=== PATIENT | female | born 2000 | race Caucasian/White ===

== ENCOUNTER 2023-11-20 04:30 | Inpatient (IN) ==
[2023-11-20] MEDS ORDERED: LIDOCAINE 1% LOCAL 20 ML VIAL INFIL PRN (06:11)
[2023-11-20] MEDS ORDERED: OXYTOCIN 30 UNITS/NSS 30 UNITS/500 ML BAG IV PRN (06:11)
[2023-11-20] MEDS: LACTATED RINGER'S 1,000 ML IV PRN (06:50)
--- NOTE | 2023-11-20 06:55 | History & Physical Report ---
Date of Service November 20, 2023 Assessment & Plan (1) Tobacco smoking affecting : Plan: Mika is a 23-year-old G1, P0 currently at 39 weeks 5 days gestational age presents in labor. Progressing spontaneously. Category 1 tracing. GBS negative. Vitals within normal limits (2) Normal labor: (3) Encounter for supervision of normal : Admission and Anticipated Discharge Date Admission Date: November 20, 2023 History of Present Illness Primary Care Provider: Jaleel Arguello, DO This a 23-year-old G1, P0 currently at 39 weeks 5 days gestational age presents for evaluation of labor. Reporting regular painful contractions that have been increasing in intensity and frequency over time. Denying leakage of fluid or vaginal bleeding. Normal movement complicated by tobacco use during . OB Labs: Blood Type O Positive 04/29/23 Antibody Screen NEGATIVE 04/29/23 Hemoglobin 11.6 g/dl (12.0-16.0) L 08/30/23 Hematocrit 32.1 % (37.0-47.0) L 08/30/23 Mean Corpuscular Volume 92.9 fL (80.0-100.0) 04/29/23 Platelet Count 241 K/uL (130-400) 04/29/23 Rubella IgG Antibody Immune (Immune) 04/29/23 Rapid Plasma Reagin Nonreactive (Nonreactive) 04/29/23 Hepatitis B Surface Antigen. NON-REACTIVE (NON-REACTIVE) 04/29/23 Hepatitis C Antibody (EIA) NON-REACTIVE (NON-REACTIVE) 04/29/23 HIV (1&2) Ag and Ab Confirmation NON-REACTIVE (NON-REACTIVE) 04/29/23 Glucose 1 Hour 50 gm Load 87 mg/dl (70-130) 08/30/23 OB Optional Labs: Chlamydia trachomatis RNA Not Detected (NotDetected) 04/29/23 Neisseria gonorrhoeae RNA Not Detected (NotDetected) 04/29/23 Labs Reviewed: cfDNA, declines smp horizon testing, declines smp Allergies Allergy/AdvReac Type Severity Reaction Status Date / Time No Known Allergies Allergy Verified 11/15/23 13:44 Home Medications Medication Instructions Recorded Confirmed Type 21-iron fu-folic acid PO 1XD 04/19/23 11/15/23 History [ Complete] Patient History Medical History (Updated 11/20/23 @ 06:54 by Cornel Garcia MD) UTI (urinary tract infection) Surgical History No history of previous surgery Family History Denies family history of Ovarian cancer Breast cancer Colorectal cancer Social History Smoking Status: Current every day smoker Tobacco Type: Cigarettes Cigarettes Per Day: 5; Do You Dip or Chew Tobacco: No; Hx Alcohol Use: No Hx Substance Use: No Preferred Language: Romanian Fence Setter Required: No Beliefs That Will Affect Care: None marital status: Single marital status details: geovanny España Holbrook (22) Current Living Situation: Parent Current Living Situation Comment: lives with parents, dog, cat-mom changing litter current occupational status: employed current occupation: [employer] Other Information That Helps Us Care for You: No Feels Safe at Home: Yes Safety Concerns: Feels Safe At This Time Assistive Devices: Glasses Physical Exam Genitourinary: Manual OB Exam: + cervical dilation OB Exam Monitor Tracing: + external FHT monitor used, + external uterine monitor used, + category I and + normal FHT variability Progressed from 1.5 cm dilated to 3 cm dilated over 1 hour. Results & Data Vital Signs (Past 12 Hours) Vital Signs Temp Pulse Resp BP 11/20/23 04:59 71 118/77 11/20/23 04:50 36.7 C 20 Coding Level of Care Code None Diagnoses Tobacco smoking affecting in third trimester O99.333 Trimester: third trimester Normal labor O80; Z37.9 Encounter for supervision of normal first in third trimester Z34.03 Normal : normal first Trimester: third trimester (1) Tobacco smoking affecting Trimester: third trimester Qualified Code(s): O99.333 - Smoking (tobacco) complicating , third trimester (3) Encounter for supervision of normal Normal : normal first Trimester: third trimester Qualified Code(s): Z34.03 - Encounter for supervision of normal first , third trimester
[2023-11-20 06:58] LABS: Hematocrit (blood only) 28.8 % (37.0-47.0); Hemoglobin 10.2 g/dl (12.0-16.0); Mean Corpuscular Hemoglobin 30.7 pg (25.0-34.0); Mean Corpuscular Hgb Conc 35.4 g/dL (32.0-36.0); Mean Corpuscular Volume 86.7 fL (80.0-100.0); Mean Platelet Volume 10.1 fL (9.4-12.4); Platelet Count 292 K/uL (130-400); RDW Coefficient of Variation 12.9 % (11.5-14.5); RDW Standard Deviation 40.3 fL (36.4-46.3); Red Blood Count 3.32 M/uL (4.20-5.40); White Blood Count 10.63 K/ul (4.8-10.8)
[2023-11-20] MEDS ORDERED: ROPIVACAINE 0.5% PF 5 MG/ML 20 ML VIAL EPI PRN (07:09)
[2023-11-20] MEDS ORDERED: BUPIVACAINE 0.25% PF 30 ML VIAL EPI PRN (07:09)
[2023-11-20] MEDS ORDERED: NALOXONE HCL 0.4 MG/1 ML VIAL/CARP IV PRN ×2 (07:09→21:45)
[2023-11-20] MEDS ORDERED: diphenhydrAMINE 50 MG/ML VIAL IV PRN ×2 (07:09→21:45)
[2023-11-20] MEDS ORDERED: ONDANSETRON INJ 2 MG/ML 2 ML VIAL IV PRN ×2 (07:09→21:45)
[2023-11-20] MEDS ORDERED: NALBUPHINE HCL 5 MG in SYRINGE 0 ML IV PRN ×2 (07:09→21:45)
[2023-11-20] MEDS ORDERED: LIDOCAINE 2% MPF LOCAL 5 ML VIAL EPI PRN (07:09)
[2023-11-20] MEDS ORDERED: NALOXONE HCL 1 MG in SODIUM CHLORIDE 0.9% 1,000 ML IV PRN ×2 (07:09→21:45)
[2023-11-20] MEDS ORDERED: fentaNYL citrate PF 100 MCG/2 ML VIAL EPI PRN (07:09)
[2023-11-20] MEDS ORDERED: SODIUM CHLORIDE 0.9% PF INJ 10 ML VIAL EPI PRN (07:09)
[2023-11-20] MEDS ORDERED: ePHEDrine sulfate 50 MG/ML AMP IV PRN ×2 (07:09→21:45)
--- NOTE | 2023-11-20 07:11 | Anesthesiology Consultation ---
Date of Service November 20, 2023 Assessment & Plan (1) Encounter for pre-operative examination: Chart Review Chart Review: Patient NOT seen in Pre Admission Testing and Acceptable Risk for Labor Epidural Consults Requested none History Height/Weight Height: 5 ft 2 in Weight: 93.803 kg Allergies Allergy/AdvReac Type Severity Reaction Status Date / Time No Known Allergies Allergy Verified 11/15/23 13:44 Medications Home Medications Medication Instructions Recorded Confirmed Last Taken 21-iron fu-folic acid PO 1XD 04/19/23 11/15/23 11/19/23 [ Complete] Active Medications Generic Name Dose Route Start Last Admin Trade Name Freq PRN Reason Stop Dose Admin Lactated Ringer's 1,000 mls @ 125 mls/hr 11/20/23 06:11 11/20/23 06:50 Lr IV 11/22/23 06:10 999 mls/hr .Q8H PRN Administration L&D Protocol Protocol Past Medical History Medical History (Updated 11/20/23 @ 07:11 by Jay Duncan MD) Encounter for pre-operative examination UTI (urinary tract infection) Exercise / Class Metabolic Activity II 4-5 Yardwork/Stairs/Walk up hill Past Family History Family History Denies family history of Ovarian cancer Breast cancer Colorectal cancer Past Surgical History Surgical History No history of previous surgery Social History Smoking Status: Current every day smoker Smoking cigarettes per day: 5 Do You Dip or Chew Tobacco: No Hx Alcohol Use: No Hx Substance Use: No substance use type: does not use Physical Exam Vital Signs Last Vital Signs Temp 36.7 C 11/20/23 04:50 Pulse 78 11/20/23 07:27 Resp 20 11/20/23 04:50 BP 118/77 11/20/23 04:59 Pulse Ox 98 11/20/23 07:27 Testing Laboratory Results 11/20/23 06:34
[2023-11-20] MEDS: BUPIVACAINE 0.25% PF 30 ML VIAL ONE (07:28)
[2023-11-20] MEDS: fentaNYL citrate PF 100 MCG/2 ML VIAL ONE (07:28)
[2023-11-20] MEDS: LIDOCAINE 2%/EPINEPHRINE 1:200,000 20 ML PF ONE (07:33)
[2023-11-20] MEDS: fentANYL 2 MCG/ML BUPIVacaine 0.125%-NSS 100ML BAG EPI PRN (07:34)
[2023-11-20] MEDS: fentANYL 2 MCG/ML BUPIVacaine 0.125%-NSS 100ML BAG ONE (08:26)
[2023-11-20] MEDS: BUPIVACAINE 0.25% PF 30 ML VIAL EPI STA (08:26)
[2023-11-20] MEDS: fentaNYL citrate PF 100 MCG/2 ML VIAL EPI STA (08:27)
[2023-11-20] MEDS: SODIUM CHLORIDE 0.9% PF INJ 10 ML VIAL EPI STA (08:36)
[2023-11-20] MEDS: SODIUM CHLORIDE 0.9% PF INJ 10 ML VIAL ONE (08:36)
[2023-11-20] MEDS: LIDOCAINE 2%/EPINEPHRINE 1:200,000 20 ML PF EPI STA (09:20)
[2023-11-20] MEDS: ePHEDrine sulfate 50 MG/ML AMP ONE (09:35)
--- NOTE | 2023-11-20 09:35 | Labor Progress Brief Note ---
Date of Service November 20, 2023 Subjective Comfortable with epidural Assessment & Plan Admission and Anticipated Discharge Date Admission Date: November 20, 2023 Physical Exam Genitourinary: no change Pitocin to begin/AROM performed for clear fluid, copious FHT Cat 1 [place] Q4 Results & Data Vital Signs (Past 12 Hours) Vital Signs Temp Pulse Resp BP Pulse Ox 11/20/23 09:32 70 96 11/20/23 09:27 75 98 11/20/23 09:25 82 127/69 11/20/23 09:24 69 93 11/20/23 09:22 71 97 11/20/23 09:17 73 97 11/20/23 09:12 75 144/87 H 94 11/20/23 09:07 65 97 11/20/23 09:02 69 97 11/20/23 08:57 79 97 11/20/23 08:52 68 97 11/20/23 08:51 83 99/56 L 11/20/23 08:47 67 96 11/20/23 08:44 68 94 11/20/23 08:42 66 95 11/20/23 08:41 67 95/51 L 11/20/23 08:37 68 96 11/20/23 08:32 64 97 11/20/23 08:31 68 101/56 L 11/20/23 08:28 66 94 11/20/23 08:27 65 94 11/20/23 08:22 64 95 11/20/23 08:21 69 99/57 L 11/20/23 08:17 66 95 11/20/23 08:12 63 105/57 L 97 11/20/23 08:07 63 96 11/20/23 08:02 69 106/53 L 98 11/20/23 07:57 65 97 11/20/23 07:52 64 97 11/20/23 07:51 65 111/57 L 11/20/23 07:47 64 98 11/20/23 07:42 18 11/20/23 07:42 98.1 F 67 18 98 11/20/23 07:40 68 122/60 11/20/23 07:38 66 120/59 L 11/20/23 07:37 68 97 11/20/23 07:36 75 123/55 L 11/20/23 07:33 67 120/58 L 11/20/23 07:32 66 98 11/20/23 07:27 78 98 11/20/23 07:22 74 98 11/20/23 07:17 76 99 11/20/23 04:59 71 118/77 11/20/23 04:50 98.1 F 20 Coding Level of Care Code None
[2023-11-20] MEDS: OXYTOCIN 30 UNITS/NSS 30 UNITS/500 ML BAG IV PRN (09:48)
[2023-11-20] MEDS: ACETAMINOPHEN 650 MG SUPP PR STA (19:41)
[2023-11-20] MEDS: AMPICILLIN/SULBACTAM SOD 3,000 MG in SODIUM CHLOR 0.9% MINI-B 100 ML IV STA (19:48)
--- NOTE | 2023-11-20 20:56 | Communication Note ---
Date of Service: November 20, 2023 Patient with chorioamnionitis per fever (Tmax 102.1 and this was well after rectal tylenol given, and unasyn IV started) and tachycardia. Though misa iability has always been reassuring, baseline 180-190 much of 2nd stage of labor. Patient achieved descent to +2 but no further. Was offered options including vacuum or forceps or section. Patient prefers to go to directly. Will give clinda pre-op as unasyn already given.
[2023-11-20] MEDS ORDERED: OXYTOCIN 10 UNITS/ML VIAL ONE (20:58)
[2023-11-20] MEDS ORDERED: ONDANSETRON INJ 2 MG/ML 2 ML VIAL ONE (20:58)
[2023-11-20] MEDS ORDERED: PHENYLEPHRINE HCL 10 MG/ML VIAL ONE (20:58)
[2023-11-20] MEDS ORDERED: MoRPHine SULFATE PF 1 MG/ML 10 ML AMP/VIAL ONE (20:58)
[2023-11-20] MEDS ORDERED: LIDOCAINE 2%/EPINEPHRINE 1:200,000 20 ML PF ONE (20:58)
[2023-11-20] MEDS ORDERED: LACTATED RINGER'S 1,000 ML IV SCH ×2 (21:00→22:15)
[2023-11-20] MEDS: CITRIC ACID/SODIUM CITRATE 15 ML UDC PO SCH (21:02)
[2023-11-20] MEDS: CLINDAMYCIN/D5W 900 MG/50 ML BAG IV SCH (21:08)
[2023-11-20] MEDS ORDERED: KETAMINE HCL 10MG/ML SYR ONE (21:25)
[2023-11-20] MEDS ORDERED: MIDAZOLAM HCL 1 MG/ML 2ML VIAL ONE (21:33)
[2023-11-20] MEDS ORDERED: HYDROmorphone INJ 0.5 MG/0.5 ML SYR IV PRN (21:45)
[2023-11-20] MEDS ORDERED: MoRPHine SULFATE PF 1 MG/ML 10 ML AMP/VIAL EPI ONE (21:45)
[2023-11-20] MEDS ORDERED: NO NARCOTICS OR SEDATIVES SCH (21:45)
[2023-11-20] MEDS ORDERED: PROMETHAZINE HCL 6.25 MG in SODIUM CHLORIDE 0.9% 50 ML IV PRN (21:45)
[2023-11-20] MEDS ORDERED: LACTATED RINGER'S 500 ML IV PRN (21:45)
[2023-11-20] MEDS ORDERED: DC INTRASPINAL MORPHINE SCH (21:45)
[2023-11-20] MEDS ORDERED: NALOXONE HCL 0.08 MG in SYRINGE 1.8 ML IV PRN (21:45)
[2023-11-20] MEDS ORDERED: SODIUM CHLORIDE 0.9% 1,000 ML IV SCH (21:45)
[2023-11-20 21:57] LABS: Base Excess Cord Arterial Bld -2.6 mEq/L (-9-1.8); CO2 Cord Arterial Blood 43 mmHg (39.1-73.5); HCO3 Cord Arterial Blood 23 mmol/L (19.7-28.5); Oxygen Sat Cord Arterial Blood < 60.0 % (<60); PO2 Cord Arterial Blood 27 mmHg (4.1-31.7); pH Cord Arterial Blood 7.34 (7.1-7.38)
[2023-11-20 22:00] LABS: Base Excess Cord Venous Blood -3.1 mEq/L (-7.7-1.9); Cord Venous Blood HCO3 22 mmol/L (18.4-26.8); Cord Venous Blood PCO2 39 mmHg (30.4-57.2); Cord Venous Blood PO2 28 mmHg (14.1-43.3); Cord Venous Blood pH 7.36 (7.20-7.44); O2 Saturation Cord Venous Bld 61.3 % (<68)
--- NOTE | 2023-11-20 22:01 | Operative Report ---
PG Post Operative Report Pre & Post Diagnosis Operation Date: 11/20/23 21:30 Pre-Op Diagnosis: SIUP @ Term; Chorioamnionitis; NRFHT; Failure to Descend Post-Op Diagnosis: Same I identified the patient and participated in the time-out.: Yes Procedure Operation Date: 11/20/23 21:30 Actual Procedures 1' Low Transverse Section Surgeon Marcia Blankenship MD Research Computing Specialist Susan Estimated Blood Loss 600 Findings Consistent with Post-Op Diagnosis Specimens Placenta, Cord gas, Cord blood Anesthesia Type L&D Only Epidural Exists Complications none Disposition Accompanied Patient To Recovery: Yes Disposition: L&D Description of Procedure The patient was placed operating table in the supine position with a leftward tilt. She was prepped and draped in standard sterile fashion. The anesthetic was tested and found to be adequate. A time-out was held, identifying correct patient, procedure, positioning and preoperative antibiotics. There were no concerns. A Pfannenstiel skin incision was made with a knife and taken down to the underlying layer of fascia. The fascia was incised in the midline with the knife and taken out laterally with scissors. The superior edge of the fascial incision was grasped, elevated and dissected off the underlying rectus both superiorly and inferiorly. The muscles were bluntly in the midline. The peritoneum was entered bluntly. The incision was then stretched. The bladder retractor was placed. The vesicouterine peritoneum was identified, entered with scissors and taken out laterally with scissors. The bladder flap was created digitally. A hysterotomy incision was created transversely in the lower uterine segment, final entry being accomplished in a blunt manner with the desktop operator's fingers. Clear amniotic fluid was encountered. The desktop operator's hand was used to elevate the head to the hysterotomy. The head was delivered using mild fundal pressure, and the shoulders and body followed without difficulty. The cord was clamped and cut and the infant was then handed off to the awaiting vocational adviser. Cord blood was obtained. The placenta was Manually extracted. The uterus was exteriorized and cleared of all clot and debris with moistened laparotomy sponges. The hysterotomy incision was repaired in two layers, the first in a running locked layer, the second in an imbricating layer. The ovaries and tubes were seen to be normal bilaterally. The uterus was gently replaced in the abdomen, and the gutters were cleared of clot and debris. A final inspection of the hysterotomy revealed good hemostasis. The rectus muscles were allowed to reapproximate naturally. The fascia was then reapproximated with 1 Vicryl in a running nonlocked manner. The fascia was examined and found to be free of defect following closure. The s ubcutaneous tissue was copiously irrigated and reapproximated with 0-chromic, then the skin edges were closed with 4-0 monocryl in a subcuticular fashion. A dermabond dressing was applied. The shah was found to be draining clear yellow urine at completion of the procedure. I attest to the content of the Intraoperative Record and any orders documented therein. Any exceptions are noted below. I attest to the content of the Intraoperative Record and any orders documented therein. Any exceptions are noted below. OB Procedure Charges 36955
--- NOTE | 2023-11-20 22:10 | Anesthesiology Progress Note ---
Date of Service November 20, 2023 Anesthesia Post Procedure Vital Signs Vital Signs: Temp Pulse Resp BP Pulse Ox 11/20/23 22:07 99 H 96 11/20/23 22:02 97 11/20/23 22:02 94 H 11/20/23 22:02 95 H 135/64 11/20/23 21:11 100 H 141/73 H 11/20/23 21:07 110 H 95 11/20/23 21:02 111 H 94 11/20/23 20:57 98 H 98 11/20/23 20:55 105 H 157/73 H 11/20/23 20:52 110 H 96 11/20/23 20:47 102 H 98 11/20/23 20:42 90 93 11/20/23 20:37 99 H 86 L 11/20/23 20:35 38.9 C H 11/20/23 20:32 99 H 97 11/20/23 20:27 112 H 97 11/20/23 20:26 39.1 C H 96 H 132/68 11/20/23 20:22 111 H 97 11/20/23 20:20 110 H 78 L 11/20/23 20:17 94 H 97 11/20/23 20:15 37.7 C H 11/20/23 20:12 104 H 98 11/20/23 20:11 83 115/55 L 11/20/23 20:07 92 H 98 11/20/23 20:05 38.9 C H 11/20/23 20:02 92 H 98 11/20/23 19:57 93 H 98 11/20/23 19:56 90 135/63 11/20/23 19:53 96 H 79 L 11/20/23 19:52 96 H 88 L 11/20/23 19:47 91 H 100 11/20/23 19:42 116 H 100 11/20/23 19:41 90 139/74 11/20/23 19:37 93 H 99 11/20/23 19:34 116 H 80 L 11/20/23 19:32 123 H 98 11/20/23 19:28 202 H 81 L 11/20/23 19:27 119 H 80 L 11/20/23 19:26 112 H 141/73 H 11/20/23 19:22 92 H 77 L 11/20/23 19:17 107 H 93 11/20/23 19:15 37.3 C 11/20/23 19:12 99 H 78 L 11/20/23 19:07 104 H 86 L 11/20/23 19:03 106 H 89 L 11/20/23 19:02 104 H 90 11/20/23 18:57 95 H 99 11/20/23 18:55 97 H 136/85 11/20/23 18:52 104 H 100 11/20/23 18:47 87 98 11/20/23 18:42 87 98 11/20/23 18:40 103 H 89 L 11/20/23 18:37 115 H 99 11/20/23 18:32 112 H 97 11/20/23 18:29 108 H 90 11/20/23 18:27 115 H 97 11/20/23 18:26 96 H 155/60 H 11/20/23 18:22 97 H 100 11/20/23 18:17 92 H 99 11/20/23 18:14 85 88 L 11/20/23 18:12 84 97 11/20/23 18:11 77 126/75 11/20/23 18:07 82 98 11/20/23 18:05 22 11/20/23 18:05 37.4 C 22 11/20/23 18:02 91 H 97 11/20/23 18:00 78 93 11/20/23 17:57 77 97 11/20/23 17:55 83 112/60 11/20/23 17:52 75 98 11/20/23 17:47 76 100 11/20/23 17:42 74 99 11/20/23 17:41 78 115/55 L 11/20/23 17:37 74 98 11/20/23 17:32 71 97 11/20/23 17:27 71 99 11/20/23 17:26 71 125/60 11/20/23 17:22 72 98 11/20/23 17:17 77 95 11/20/23 17:12 77 99 11/20/23 17:10 78 122/63 11/20/23 17:07 77 98 11/20/23 17:02 78 99 11/20/23 16:57 77 99 11/20/23 16:55 74 122/64 11/20/23 16:52 88 98 11/20/23 16:48 85 93 03/30/24 16:47 80 96 11/20/23 16:42 77 96 11/20/23 16:41 95 H 94 11/20/23 16:40 74 113/61 11/20/23 16:37 71 96 11/20/23 16:32 78 95 11/20/23 16:27 98 11/20/23 16:27 80 11/20/23 16:27 69 111/59 L 11/20/23 16:22 71 95 11/20/23 16:17 79 96 11/20/23 16:12 85 97 11/20/23 16:11 72 121/59 L 11/20/23 16:07 72 95 11/20/23 16:05 77 94 11/20/23 16:02 75 95 11/20/23 15:57 75 95 11/20/23 15:55 68 116/59 L 11/20/23 15:52 73 96 11/20/23 15:47 77 97 11/20/23 15:42 80 96 11/20/23 15:41 70 121/56 L 11/20/23 15:40 37.1 C 80 20 94 11/20/23 15:37 73 95 11/20/23 15:32 72 96 11/20/23 15:27 72 97 11/20/23 15:26 72 118/57 L 11/20/23 15:22 72 96 11/20/23 15:17 73 96 11/20/23 15:12 72 97 11/20/23 15:11 71 119/65 11/20/23 15:07 70 96 11/20/23 15:02 73 96 11/20/23 14:57 75 97 11/20/23 14:55 71 116/68 11/20/23 14:52 80 96 11/20/23 14:47 74 96 11/20/23 14:42 75 96 11/20/23 14:40 81 113/63 11/20/23 14:37 73 96 11/20/23 14:32 78 96 11/20/23 14:27 87 96 11/20/23 14:25 75 112/52 L 11/20/23 14:22 75 96 11/20/23 14:17 72 96 11/20/23 14:12 86 96 11/20/23 14:11 71 125/60 11/20/23 14:07 73 95 11/20/23 14:02 72 96 11/20/23 13:57 69 96 11/20/23 13:56 72 110/58 L 11/20/23 13:52 70 97 11/20/23 13:47 72 96 11/20/23 13:42 71 96 11/20/23 13:40 74 119/58 L 11/20/23 13:37 72 97 11/20/23 13:32 69 97 11/20/23 13:27 89 97 11/20/23 13:25 72 117/59 L 11/20/23 13:22 74 97 11/20/23 13:17 70 97 11/20/23 13:12 69 96 11/20/23 13:10 74 124/76 11/20/23 13:09 82 93 11/20/23 13:07 69 96 11/20/23 13:02 68 96 11/20/23 12:57 69 97 11/20/23 12:56 83 93 11/20/23 12:55 77 122/67 11/20/23 12:52 70 97 11/20/23 12:47 68 98 11/20/23 12:42 73 96 11/20/23 12:40 64 117/58 L 11/20/23 12:37 66 96 11/20/23 12:34 36.9 C 75 18 89 L 11/20/23 12:32 71 97 11/20/23 12:27 70 98 11/20/23 12:25 70 121/62 11/20/23 12:22 68 97 11/20/23 12:17 79 90 11/20/23 12:12 72 98 11/20/23 12:11 67 116/63 11/20/23 12:07 68 97 11/20/23 12:02 73 96 11/20/23 12:01 88 94 11/20/23 11:57 72 96 11/20/23 11:56 67 113/56 L 11/20/23 11:54 71 92 11/20/23 11:52 69 96 11/20/23 11:47 74 97 11/20/23 11:42 75 96 11/20/23 11:41 72 116/55 L 11/20/23 11:37 71 96 11/20/23 11:32 70 96 11/20/23 11:29 79 93 11/20/23 11:27 84 97 11/20/23 11:26 71 117/59 L 11/20/23 11:22 70 95 11/20/23 11:17 74 95 11/20/23 11:12 72 113/52 L 95 11/20/23 11:07 74 96 11/20/23 11:02 69 95 11/20/23 10:57 71 96 11/20/23 10:56 67 115/57 L 11/20/23 10:53 75 94 11/20/23 10:52 72 95 11/20/23 10:47 71 95 11/20/23 10:42 66 97 11/20/23 10:41 64 114/59 L 11/20/23 10:37 63 97 11/20/23 10:32 66 96 11/20/23 10:30 91 H 92 11/20/23 10:27 95 11/20/23 10:27 79 11/20/23 10:27 78 115/80 11/20/23 10:22 72 96 11/20/23 10:17 68 96 11/20/23 10:12 69 96 11/20/23 10:11 69 126/73 11/20/23 10:07 69 96 11/20/23 10:02 66 96 11/20/23 09:57 77 96 11/20/23 09:56 65 124/70 11/20/23 09:52 71 97 11/20/23 09:47 36.7 C 69 19 96 11/20/23 09:42 71 97 11/20/23 09:40 72 128/61 11/20/23 09:37 66 97 11/20/23 09:32 70 96 11/20/23 09:27 75 98 11/20/23 09:25 82 127/69 11/20/23 09:24 69 93 11/20/23 09:22 71 97 11/20/23 09:17 73 97 11/20/23 09:12 75 144/87 H 94 11/20/23 09:07 65 97 11/20/23 09:02 69 97 11/20/23 08:57 79 97 11/20/23 08:52 68 97 11/20/23 08:51 83 99/56 L 11/20/23 08:47 67 96 11/20/23 08:44 68 94 11/20/23 08:42 66 95 11/20/23 08:41 67 95/51 L 11/20/23 08:37 68 96 11/20/23 08:32 64 97 11/20/23 08:31 68 101/56 L 11/20/23 08:28 66 94 11/20/23 08:27 65 94 11/20/23 08:22 64 95 11/20/23 08:21 69 99/57 L 11/20/23 08:17 66 95 11/20/23 08:12 63 105/57 L 97 11/20/23 08:07 63 96 11/20/23 08:02 69 106/53 L 98 11/20/23 07:57 65 97 11/20/23 07:52 64 97 11/20/23 07:51 65 111/57 L 11/20/23 07:47 64 98 11/20/23 07:42 18 11/20/23 07:42 36.7 C 67 18 98 11/20/23 07:40 68 122/60 11/20/23 07:38 66 120/59 L 11/20/23 07:37 68 97 11/20/23 07:36 75 123/55 L 11/20/23 07:33 67 120/58 L 11/20/23 07:32 66 98 11/20/23 07:27 78 98 11/20/23 07:22 74 98 11/20/23 07:17 76 99 11/20/23 04:59 71 118/77 11/20/23 04:50 36.7 C 20 Transfer of Care Handoff Completed per policy Notes Mental Status: alert / awake / arousable Patient Amnestic to Procedure: Yes Nausea / Vomiting: adequately controlled Pain: adequately controlled Airway Patency, RR, SpO2: stable & adequate BP & HR: stable & adequate Hydration State: stable & adequate Neuraxial Anesthesia: was administered and sensory block is resolving Anesthetic Complications: no major complications apparent and Pt Satisfied with anesthetic care
--- NOTE | 2023-11-20 22:11 | Anesthesia Procedure Note ---
Date of Service November 20, 2023 Anesthesia Post Epidural Note Vital Signs Vital Signs: Temp Pulse Resp BP Pulse Ox 38.9 C H 99 H 22 135/64 96 11/20/23 20:35 11/20/23 22:07 11/20/23 18:05 11/20/23 22:02 11/20/23 22:07 Notes Mental Status: alert / awake / arousable and participated in evaluation Patient Amnestic to Procedure: No Nausea / Vomiting: adequately controlled Pain: adequately controlled Airway Patency, RR, SpO2: stable & adequate BP & HR: stable & adequate Hydration State: stable & adequate Neuraxial Anesthesia: was administered and sensory block is resolving Anesthetic Complications: no major complications apparent and Pt Satisfied with anesthetic care Epidural: Removed without complications and With tip intact
[2023-11-20] MEDS ORDERED: HYDROCORTISONE ACETATE 25 MG SUPP PR PRN (22:14)
[2023-11-20] MEDS ORDERED: DIPHTHER/TETAN/PERTUS Vaccine (Tdap, Adol/Adult) 0.5mL IM ONE (22:14)
[2023-11-20] MEDS ORDERED: BENZOCAINE 20% SPRY 85 APPLN/85 GM CAN EXT PRN (22:14)
[2023-11-20] MEDS ORDERED: SENNA 8.6 MG TAB PO PRN (22:14)
[2023-11-20] MEDS ORDERED: MAGNESIUM HYDROXIDE SUSP 30 ML UDC PO PRN (22:14)
[2023-11-20] MEDS: OXYTOCIN 30 UNITS/LR 1,003 ML IV SCH (22:45)
[2023-11-21 06:52] LABS: Hematocrit (blood only) 24.4 % (37.0-47.0); Hemoglobin 8.4 g/dl (12.0-16.0); Mean Corpuscular Hemoglobin 30.7 pg (25.0-34.0); Mean Corpuscular Hgb Conc 34.4 g/dL (32.0-36.0); Mean Corpuscular Volume 89.1 fL (80.0-100.0); Mean Platelet Volume 10.4 fL (9.4-12.4); Platelet Count 221 K/uL (130-400); RDW Coefficient of Variation 13.2 % (11.5-14.5); RDW Standard Deviation 42.5 fL (36.4-46.3); Red Blood Count 2.74 M/uL (4.20-5.40); White Blood Count 26.39 K/ul (4.8-10.8)
[2023-11-21 07:16] LABS: Basophils # (auto) 0.04 K/uL (0.00-0.20); Basophils % (auto) 0.2 %; Eosinophils # (auto) 0.11 K/uL (0.00-0.50); Eosinophils % (auto) 0.4 %; Immature Granulocytes # (auto) 0.23 K/uL (0.01-0.20); Immature Granulocytes % (auto) 0.9 %; Lymphocytes # (auto) 1.63 K/uL (1.20-3.40); Lymphocytes % (auto) 6.2 %; Monocytes # (auto) 1.78 K/uL (0.11-0.59); Monocytes % (auto) 6.7 %; Neutrophils % (auto) 85.6 %; RBC Morphology Unremarkable
[2023-11-21] MEDS: KETOROLAC 30 MG/ML VIAL IV PRN (07:44)
--- NOTE | 2023-11-21 08:06 | Obstetrical Progress Note ---
Date of Service November 21, 2023 Assessment & Plan (1) state: Plan Recovering well from CSec, s/p chorio with improvement after delivery, afebrile since then, fundus minimally tender / appropriate today. Subjective Ambulation: ambulating normally Voiding: no voiding problems Passing Gas:: Yes Diet Tolerance:: regular diet Lochia:: Small Feeding Type:: breast feeding Physical Exam Constitutional WD/WN, vitals as above Eyes PERRL, conjunctivae normal, anicteric sclerae Neck normal visual inspection Respiratory normal respiratory effort and able to speak in complete sentences; no respiratory distress and no labored breathing Cardiovascular Rate/Rhythm: regular rate and regular rhythm Extremities: no edema Chest (Breasts) Chest: normal inspection of chest Gastrointestinal (Abdomen) Inspection/Auscultation: abdomen normal to inspection Soft, postgravid C/D/I Fundus minimally tender Psychiatric A+Ox3, euthymic affect Genitourinary OB Exam Abdomen: + fundal height Fundus: + firm and + relation to umbilicus (fundus just below umbilicus); not tender Results & Data Vital Signs (Past 12 Hours) Vital Signs Temp Pulse Pulse Resp BP BP Pulse Ox 11/21/23 07:25 85 16 120/69 96 11/21/23 06:33 16 95 11/21/23 05:00 14 96 11/21/23 04:00 14 95 11/21/23 03:41 16 95 11/21/23 03:38 98.2 F 82 16 127/65 95 11/21/23 03:11 14 96 11/21/23 02:00 16 97 11/21/23 01:15 78 16 121/63 98 11/21/23 01:15 16 98 11/21/23 01:07 82 96 11/21/23 01:05 78 94 11/21/23 01:02 76 126/56 L 95 11/21/23 00:57 77 93 11/21/23 00:52 93 11/21/23 00:52 77 11/21/23 00:52 78 127/60 11/21/23 00:47 75 93 11/21/23 00:43 71 125/60 11/21/23 00:42 73 94 11/21/23 00:39 74 94 11/21/23 00:37 77 94 11/21/23 00:33 76 142/78 H 11/21/23 00:32 74 94 11/21/23 00:27 76 94 11/21/23 00:23 77 94 11/21/23 00:22 73 125/62 94 11/21/23 00:17 95 11/21/23 00:17 73 11/21/23 00:17 72 94 11/21/23 00:12 99.0 F 71 14 131/63 95 11/21/23 00:12 71 131/63 94 11/21/23 00:11 70 94 11/21/23 00:07 71 95 11/21/23 00:06 69 94 11/21/23 00:02 68 128/62 93 11/20/23 23:57 72 93 11/20/23 23:52 72 133/69 94 11/20/23 23:49 74 94 11/20/23 23:47 71 95 11/20/23 23:44 75 93 11/20/23 23:43 70 131/61 11/20/23 23:42 70 14 131/61 94 11/20/23 23:42 70 95 11/20/23 23:38 70 94 11/20/23 23:37 73 94 11/20/23 23:32 73 123/55 L 94 11/20/23 23:29 72 94 11/20/23 23:27 71 96 11/20/23 23:22 74 130/62 95 11/20/23 23:18 72 94 11/20/23 23:17 71 95 11/20/23 23:13 75 141/73 H 11/20/23 23:12 72 16 141/73 H 94 11/20/23 23:12 98.6 F 82 16 141/73 H 94 11/20/23 23:12 73 95 11/20/23 23:08 82 94 11/20/23 23:07 78 95 11/20/23 23:02 76 16 131/61 96 11/20/23 23:02 73 131/61 96 11/20/23 22:57 76 96 11/20/23 22:54 82 131/58 L 11/20/23 22:53 73 155/67 H 11/20/23 22:52 76 14 131/58 L 96 11/20/23 22:52 78 97 11/20/23 22:47 80 95 11/20/23 22:43 99 H 160/72 H 11/20/23 22:42 20 11/20/23 22:42 105 H 97 11/20/23 22:37 78 97 11/20/23 22:32 18 11/20/23 22:32 81 121/58 L 97 11/20/23 22:27 83 97 11/20/23 22:22 18 11/20/23 22:22 86 119/56 L 98 11/20/23 22:17 85 98 11/20/23 22:12 96 11/20/23 22:12 93 H 11/20/23 22:12 92 H 123/58 L 11/20/23 22:07 99 H 96 11/20/23 22:02 97 11/20/23 22:02 94 H 11/20/23 22:02 95 H 135/64 11/20/23 21:12 99.9 F H 20 11/20/23 21:11 100 H 141/73 H 11/20/23 21:07 110 H 95 11/20/23 21:02 111 H 94 11/20/23 20:57 98 H 98 11/20/23 20:55 105 H 157/73 H 11/20/23 20:52 110 H 96 11/20/23 20:47 102 H 98 11/20/23 20:42 90 93 11/20/23 20:37 99 H 86 L 11/20/23 20:35 102.0 F H 11/20/23 20:32 99 H 97 11/20/23 20:27 112 H 97 11/20/23 20:26 102.4 F H 96 H 132/68 11/20/23 20:22 111 H 97 11/20/23 20:20 110 H 78 L 11/20/23 20:17 94 H 97 11/20/23 20:15 99.9 F H 11/20/23 20:12 104 H 98 11/20/23 20:11 83 115/55 L 11/20/23 20:07 92 H 98 O2 Del Method 11/21/23 07:25 Room Air 11/21/23 06:33 11/21/23 05:00 11/21/23 04:00 11/21/23 03:41 11/21/23 03:38 Room Air 11/21/23 03:11 11/21/23 02:00 11/21/23 01:15 Room Air 11/21/23 01:15 11/21/23 01:07 11/21/23 01:05 11/21/23 01:02 11/21/23 00:57 11/21/23 00:52 11/21/23 00:52 11/21/23 00:52 11/21/23 00:47 11/21/23 00:43 11/21/23 00:42 11/21/23 00:39 11/21/23 00:37 11/21/23 00:33 11/21/23 00:32 11/21/23 00:27 11/21/23 00:23 11/21/23 00:22 11/21/23 00:17 11/21/23 00:17 11/21/23 00:17 11/21/23 00:12 11/21/23 00:12 11/21/23 00:11 11/21/23 00:07 11/21/23 00:06 11/21/23 00:02 11/20/23 23:57 11/20/23 23:52 11/20/23 23:49 11/20/23 23:47 11/20/23 23:44 11/20/23 23:43 11/20/23 23:42 11/20/23 23:42 11/20/23 23:38 11/20/23 23:37 11/20/23 23:32 11/20/23 23:29 11/20/23 23:27 11/20/23 23:22 11/20/23 23:18 11/20/23 23:17 11/20/23 23:13 11/20/23 23:12 11/20/23 23:12 11/20/23 23:12 11/20/23 23:08 11/20/23 23:07 11/20/23 23:02 11/20/23 23:02 11/20/23 22:57 11/20/23 22:54 11/20/23 22:53 11/20/23 22:52 11/20/23 22:52 11/20/23 22:47 11/20/23 22:43 11/20/23 22:42 11/20/23 22:42 11/20/23 22:37 11/20/23 22:32 11/20/23 22:32 11/20/23 22:27 11/20/23 22:22 11/20/23 22:22 11/20/23 22:17 11/20/23 22:12 11/20/23 22:12 11/20/23 22:12 11/20/23 22:07 11/20/23 22:02 11/20/23 22:02 11/20/23 22:02 11/20/23 21:12 11/20/23 21:11 11/20/23 21:07 11/20/23 21:02 11/20/23 20:57 11/20/23 20:55 11/20/23 20:52 11/20/23 20:47 11/20/23 20:42 11/20/23 20:37 11/20/23 20:35 11/20/23 20:32 11/20/23 20:27 11/20/23 20:26 11/20/23 20:22 11/20/23 20:20 11/20/23 20:17 11/20/23 20:15 11/20/23 20:12 11/20/23 20:11 11/20/23 20:07
[2023-11-21] MEDS: SIMETHICONE 80 MG CHEW PO SCH (09:31)
[2023-11-21] MEDS: PRENATAL VITAMIN 1 TAB PO SCH (13:07)
[2023-11-21] MEDS: DOCUSATE SODIUM 100 MG CAP PO SCH (13:07)
[2023-11-21] MEDS: FERROUS SULFATE 325 MG TAB PO SCH (13:07)
[2023-11-21] MEDS ORDERED: MEPERIDINE HCL 50 MG/ML CARP IV PRN (15:45)
[2023-11-21] MEDS ORDERED: oxyCODONE/ACETAMINOPHEN 5mg/325mg TAB PO PRN (15:45)
[2023-11-21] MEDS ORDERED: ONDANSETRON INJ 2 MG/ML 2 ML VIAL IV PRN (15:45)
[2023-11-21] MEDS ORDERED: diphenhydrAMINE 50 MG/ML VIAL IV PRN (15:45)
[2023-11-21] MEDS ORDERED: PROMETHAZINE HCL 25 MG in SODIUM CHLORIDE 0.9% 50 ML IV PRN (15:45)
[2023-11-21] MEDS ORDERED: diphenhydrAMINE Capsule 25 MG CAP PO PRN (15:45)
[2023-11-21] MEDS ORDERED: KETOROLAC 30 MG/ML VIAL IV PRN (15:45)
[2023-11-21] MEDS: bisacodyL 5 MG TABEC PO SCH (20:56)
[2023-11-21] MEDS: IBUPROFEN 600 MG TAB PO PRN (20:56)
--- NOTE | 2023-11-22 04:37 | Obstetrical Progress Note ---
Date of Service November 22, 2023 Assessment & Plan Admission and Anticipated Discharge Date Admission Date: November 20, 2023 Results & Data Vital Signs (Past 12 Hours) Vital Signs Temp Pulse Resp BP O2 Del Method 11/22/23 00:45 36.5 C 85 18 123/73 Room Air 11/21/23 19:25 36.5 C 90 16 122/75 Room Air
--- NOTE | 2023-11-22 04:44 | Obstetrical Progress Note ---
Date of Service November 22, 2023 Assessment & Plan (1) Encounter for assessment: Plan 23 y/o POD#2 Eating well, voiding well, ambulating well Vitals reviewed, WNL Pain well controlled with Motrin Routine post op care - OOB, ambulation, diet progression as tolerated Will have 6 week follow up with Dr. Blankenship Subjective Ambulation: ambulating normally Voiding: no voiding problems Passing Gas:: Yes Diet Tolerance:: regular diet Lochia:: Small Feeding Type:: bottle feeding pain well controlled with Motrin Review of Systems -Denies fever or chills -Denies dyspnea, chest pain, or palpitations -Denies breast pain -Denies dysuria -Denies headache or changes in vision Physical Exam General: Alert and oriented. No acute distress Cardiac: Regular rate and rhythm, no murmurs appreciated Respiratory: Lungs clear to auscultation bilaterally, No increased work of breathing Abdominal: Soft, non-tender, non-distended. Bowel sounds present. Uterus: Uterine fundus firm, palpable below umbilicus Extremities: No lower extremity edema, calves non-tender bilaterally Results & Data Vital Signs (Past 12 Hours) Vital Signs Temp Pulse Resp BP O2 Del Method 11/22/23 00:45 36.5 C 85 18 123/73 Room Air 11/21/23 19:25 36.5 C 90 16 122/75 Room Air Resident Activity Tracking Resident Involvement: Resident Care Provided Care Provided: OB Delivery
[2023-11-22 06:30] LABS: Hematocrit (blood only) 22.9 % (37.0-47.0); Hemoglobin 7.7 g/dl (12.0-16.0)
--- NOTE | 2023-11-22 12:23 | Communication Note ---
Date of Service: November 22, 2023 called by nursing that pt wants to go home as infant dc'd by peds. i did not get any concerns in signout and order placed and script sent after checking on pa pdmp.
[2023-11-22] MEDS ORDERED: bisacodyL 10 MG SUPP PR PRN (22:05)
--- NOTE | 2023-11-25 11:00 | Discharge Summary ---
Date of Service November 25, 2023 Admission HPI Per Admitting Provider This a 23-year-old G1, P0 currently at 39 weeks 5 days gestational age presents for evaluation of labor. Reporting regular painful contractions that have been increasing in intensity and frequency over time. Denying leakage of fluid or vaginal bleeding. Normal movement complicated by tobacco use during . OB Labs: Blood Type O Positive 04/29/23 Antibody Screen NEGATIVE 04/29/23 Hemoglobin 11.6 g/dl (12.0-16.0) L 08/30/23 Hematocrit 32.1 % (37.0-47.0) L 08/30/23 Mean Corpuscular Volume 92.9 fL (80.0-100.0) 04/29/23 Platelet Count 241 K/uL (130-400) 04/29/23 Rubella IgG Antibody Immune (Immune) 04/29/23 Rapid Plasma Reagin Nonreactive (Nonreactive) 04/29/23 Hepatitis B Surface Antigen. NON-REACTIVE (NON-REACTIVE) 04/29/23 Hepatitis C Antibody (EIA) NON-REACTIVE (NON-REACTIVE) 04/29/23 HIV (1&2) Ag and Ab Confirmation NON-REACTIVE (NON-REACTIVE) 04/29/23 Glucose 1 Hour 50 gm Load 87 mg/dl (70-130) 08/30/23 OB Optional Labs: Chlamydia trachomatis RNA Not Detected (NotDetected) 04/29/23 Neisseria gonorrhoeae RNA Not Detected (NotDetected) 04/29/23 Labs Reviewed: cfDNA, declines smp horizon testing, declines smp Discharge Data Consultations 11/20/23 06:12 Consult Anesthesiology Stat Procedures Performed Operation Date: 11/20/23 21:30 Actual Procedures p Section in LD of [facility] @2129 - Marcia Blankenship MD Hospital Course (1) state: Plan Recovering well from CSec, s/p chorio with improvement after delivery, afebrile since then, fundus minimally tender / appropriate today. Coding Level of Care Code None Diagnoses state Z39.2
== END 2023-11-22 14:10 | disposition home or self-care (01) | DRG 788 ==
LOC: OPB 04:30 → 4S1 04:34 → 4E1 11-21 02:04
DX: Z3A.39 39 weeks gestation of pregnancy; O76 Abnormality in fetal heart rate and rhythm complicating labor and delivery; O41.1230 Chorioamnionitis, third trimester, not applicable or unspecified; O99.334 Smoking (tobacco) complicating childbirth; Z37.0 Single live birth; F17.210 Nicotine dependence, cigarettes, uncomplicated